=== PATIENT | male | born 1980 | race Caucasian/White ===

== ENCOUNTER 2017-05-23 17:51 | Emergency (ER) | payer MEDICAID, OTHER ==
[~2017-05-23] VITALS: Ht 167.6 cm; Wt 94.0 kg
[2017-05-23 17:58] VITALS: Ht 167.6 cm; Wt 94.0 kg
--- NOTE | 2017-05-23 20:03 | RADRPT ---
PROCEDURE: CT Brain without. CLINICAL INDICATION: Headache. TECHNIQUE: A CT of the brain was performed on multidetector high-resolution CT scanner utilizing a xial sections from the skull base through the vertex without contrast. The scan was reviewed in sof t tissue brain and high frequency resolution bone algorithm windows. Images were reviewed on a high -resolution PACS workstation. One or more the following does reduction techniques were utilized: Aut omated exposure control, adjustment of the mA/ or kV according to patient's size, or use of iterativ e reconstruction technique. The exam CTDI = 44.9 mGy and the DLP = 720.23 mGy-cm. COMPARISON: None available. FINDINGS: The ventricles and sulci are age-appropriate. There is no intracranial hemorrhage, mass effect or mi dline shift. No abnormal intra-axial or extra-axial fluid collections are seen. The tellez/white nick er differentiation is preserved. No acute skull abnormality is noted. The visualized paranasal sinus es demonstrate mild to moderate mucosal thickening in bilateral sphenoid sinuses with small fluid le manjula/mucoid secretion, right greater than left. The mastoid air cells are essentially clear. Partially visualized prominent posterior nasopharyngeal soft tissues are noted which could represent lymphoid hypertrophy. IMPRESSION: 1. No acute intracranial hemorrhage, transcortical infarction or mass effect. 2. Mild to moderate mucosal thickening in bilateral sphenoid sinuses with small fluid level/mucoid secretion, right greater than left, correlate for acute sinusitis. 3. Partially visualized prominent posterior nasopharyngeal soft tissues which could represent lymph oid hypertrophy. Correlate with direct visualization for further evaluation. RPTAT: HH .Ángel Melendez MD, MD Date Time Electronically viewed and signed by .Ángel Melendez MD, MD on 05/23/2017 20:03 .N/
[2017-05-23] MEDS ORDERED: ACET500C5 PO (20:27)
--- NOTE | 2017-05-23 20:36 | ERD ---
ER Documentation Chief Complaint Date/Time DATE: 05/23/17 TIME: 20:31 Chief Complaint pt bib self ,sent from PMD with c/o JOHNSON on and off for 2 months , HPI Patient is a 36-year-old male who presents to the emergency department for concerns of a headache 2 months. [facility] [place]. Patient states he has had a headache intermittently for the last 2 months. Headache comes and goes. Patient states he has a headache approximately twice per week. Currently patient does not have a headache. Patient describes the pain to be throughout his entire head. Patient does report nausea however he denies any vomiting. Patient denies any blurry vision, photophobia, phonophobia, LOC. Patient denies any fevers, chills, neck stiffness, neck pain or back pain. Patient denies any chest pain, shortness of breath, right upper extremity pain, diaphoresis or LOC. Of note, patient states he was told he had an elevated blood pressure. Patient has not been started on any blood pressure medication by his primary care physician. ROS All systems reviewed and are negative except as per history of present illness. Medications Home Meds Active Scripts Acetaminophen* (Tylophen*) 500 Mg Capsule, 1 CAP PO Q6H Y for PAIN AND OR ELEVATED TEMP, #20 CAP Prov:JESSICA CABELLO PA-C 05/23/17 Allergies Allergies: Coded Allergies: No Known Allergy (Unverified , 05/23/17) PMhx/Soc Medical and Surgical Hx: pt denies Surgical Hx History of Surgery: No Anesthesia Reaction: No Hx Neurological Disorder: No Hx Respiratory Disorders: No Hx Cardiac Disorders: Yes (HTN) Hx Psychiatric Problems: No Hx Miscellaneous Medical Probl: No Hx Alcohol Use: No Hx Substance Use: No Hx Tobacco Use: No Smoking Status: Never smoker Physical Exam Vitals Vital Signs Date Time Temp Pulse Resp B/P Pulse Ox O2 Delivery O2 Flow Rate FiO2 05/23/17 20:46 97 16 165/97 98 Room Air 05/23/17 17:58 98.3 101 16 161/73 99 Physical Exam GENERAL: Well-developed, well-nourished male. Appears in no acute distress. Speaking in full sentences HEAD: Normocephalic, atraumatic. EYES: Pupils are equally reactive bilaterally. EOMs grossly intact. No conjunctival erythema. ENT: Moist mucous membranes. No uvula deviation. No kissing tonsils. NECK: Supple. No meningismus. Normal range of motion of the neck. LUNG: Clear to auscultation bilaterally. No rhonchi, wheezing, rales or coarse breath sounds. HEART: Regular rate and rhythm. No murmurs, rubs or gallops. EXTREMITIES: Equal pulses bilaterally. No peripheral clubbing, cyanosis or edema. No unilateral leg swelling. NEUROLOGIC: Alert and oriented x3, cooperative. Mood and affect appropriate to situation. Cranial nerves II through XII are grossly intact. Normal speech. Motor exam: 5/5 strength in upper and lower extremities. Sensory exam: Sensation intact to light touch on all four extremities. Cerebellar function exam: No dysmetria on [id number] test. Steady gait. No pronator drift. SKIN: Normal color. Warm and dry. No rashes or lesions. Procedures/MDM ED COURSE: The patient was stable throughout ED course. I kept the patient and/or family informed of laboratory and diagnostic imaging results throughout the ED course. DIAGNOSTIC IMAGING: Read by radiologist. DIAGNOSTIC IMAGING REPORT Patient: ELMER VALADEZ : 1980 Age: 36 Sex: M MR #: [id number] DOS: 05/23/171912 Ordering MD: JESSICA CABELLO PA-C Location: [facility] Room/Bed: PROCEDURE: CT Brain without. CLINICAL INDICATION: Headache. TECHNIQUE: A CT of the brain was performed on multidetector high-resolution CT scanner utilizing axial sections from the skull base through the vertex without contrast. The scan was reviewed in soft tissue brain and high frequency resolution bone algorithm windows. Images were reviewed on a high- resolution PACS workstation. One or more the following does reduction techniques were utilized: Automated exposure control, adjustment of the mA/ or kV according to patient's size, or use of iterative reconstruction technique. The exam CTDI = 44.9 mGy and the DLP = 720.23 mGy-cm. COMPARISON: None available. FINDINGS: The ventricles and sulci are age-appropriate. There is no intracranial hemorrhage, mass effect or midline shift. No abnormal intra-axial or extra- axial fluid collections are seen. The tellez/white matter differentiation is preserved. No acute skull abnormality is noted. The visualized paranasal sinuses demonstrate mild to moderate mucosal thickening in bilateral sphenoid sinuses with small fluid level/mucoid secretion, right greater than left. The mastoid air cells are essentially clear. Partially visualized prominent posterior nasopharyngeal soft tissues are noted which could represent lymphoid hypertrophy. IMPRESSION: 1. No acute intracranial hemorrhage, transcortical infarction or mass effect. 2. Mild to moderate mucosal thickening in bilateral sphenoid sinuses with small fluid level/mucoid secretion, right greater than left, correlate for acute sinusitis. 3. Partially visualized prominent posterior nasopharyngeal soft tissues which could represent lymphoid hypertrophy. Correlate with direct visualization for further evaluation. RPTAT: HH .Ángel Melendez MD, Date Time Electronically viewed and signed by .Ángel Melendez MD, MD on 05/23/2017 20: 03 .N/ CC: JESSICA CABELLO PA-C MEDICAL DECISION MAKING: This is a 36-year-old male presents the emergency department for concerns of a headache 2 months. Patient states he has a headache approximately twice per week. She denies any headache at this time. Vital signs were reviewed. Patient was afebrile. Patient is not hypoxic. Patient denied any fevers, neck stiffness, jaw claudication, visual changes or LOC. Full neurological exam was normal. CT brain was obtained. CT brain showed 1. No acute intracranial hemorrhage, transcortical infarction or mass effect. 2. Mild to moderate mucosal thickening in bilateral sphenoid sinuses with small fluid level/mucoid secretion, right greater than left, correlate for acute sinusitis. 3. Partially visualized prominent posterior nasopharyngeal soft tissues which could represent lymphoid hypertrophy. Correlate with direct visualization for further evaluation. Given these findings, the patient's presentation is most consistent with headache of unknown etiology. Low suspicion for intracranial hemorrhage, midline shift, mass-effect, meningitis, encephalitis, intracranial mass, sinusitis, migraine headache or cluster headache. His blood pressure was noted to be elevated 161/73. Advised the patient that he should follow-up with his primary care physician to be started on blood pressure medication. Low suspicion for hypertensive emergency or hypertensive urgency at this time. PRESCRIPTIONS: Tylenol DISCHARGE: At this time, patient is stable for discharge and outpatient management. Patient was given a copy of all imaging studies obtained today. I have encouraged the patient to hydrate well. I have instructed the patient to follow- up with his/her primary care physician in 1-2 days. If symptoms persist, patient may need to see a specialist for further examinations and testing. I have instructed the patient to promptly return to the ER at any time for any new or worsening symptoms including increased increased pain, fever, nausea, vomiting, numbness, neck stiffness, visual changes, weakness or LOC. The patient and/or family expressed understanding of and agreement with this plan. All questions were answered. Home care instructions were provided. Patient's blood pressure was elevated (>120/80) but appears stable without evidence of hypertensive emergency, hypertensive urgency or end-organ failure. I had discussion with the patient about the risks of hypertension. I have advised the patient to follow up with his/her primary care physician for outpatient monitoring and treatment for hypertension in 2-3 days. I have instructed the patient to return to the ER for any new or worsening symptoms including chest pain, shortness of breath, headache, blurred vision, confusion, nausea, vomiting or LOC. Disclaimer: Inadvertent spelling and grammatical errors are likely due to EHR/ dictation software use and do not reflect on the overall quality of patient care. Also, please note that the electronic time recorded on this note does not necessarily reflect the actual time of the patient encounter. Departure Diagnosis: Primary Impression: Headache Headache type: unspecified Headache chronicity pattern: unspecified pattern Intractability: not intractable Qualified Code: R51 - Nonintractable headache, unspecified chronicity pattern, unspecified headache type Condition: Stable Patient Instructions: Self-Care for Headaches Referrals: COMM[facility] CLIN[facility] YOU HAVE RECEIVED A MEDICAL SCREENING EXAM AND THE RESULTS INDICATE THAT YOU DO NOT HAVE A CONDITION THAT REQUIRES URGENT TREATMENT IN THE EMERGENCY DEPARTMENT. FURTHER EVALUATION AND TREATMENT OF YOUR CONDITION CAN WAIT UNTIL YOU ARE SEEN IN YOUR DOCTORS OFFICE WITHIN THE NEXT 1-2 DAYS. IT IS YOUR RESPONSIBILITY TO MAKE AN APPOINTMENT FOR FOLOW-UP CARE. IF YOU HAVE A PRIMARY DOCTOR --you should call your primary doctor and schedule an appointment IF YOU DO NOT HAVE A PRIMARY DOCTOR YOU CAN CALL OUR PHYSICIAN REFERRAL HOTLINE AT IF YOU CAN NOT AFFORD TO SEE A PHYSICIAN YOU CAN CHOSE FROM THE FOLLOWING [facility] CLINICS [facility] [address] [facility] [address] [facility] [address] [facility] [address] [facility] [address] [facility]. [facility]. [address] [facility]. [facility] YOU HAVE RECEIVED A MEDICAL SCREENING EXAM AND THE RESULTS INDICATE THAT YOU DO NOT HAVE A CONDITION THAT REQUIRES URGENT TREATMENT IN THE EMERGENCY DEPARTMENT. FURTHER EVALUATION AND TREATMENT OF YOUR CONDITION CAN WAIT UNTIL YOU ARE SEEN IN YOUR DOCTORS OFFICE WITHIN THE NEXT 1-2 DAYS. IT IS YOUR RESPONSIBILITY TO MAKE AN APPOINTMENT FOR FOLOW-UP CARE. IF YOU HAVE A PRIMARY DOCTOR --you should call your primary doctor and schedule and appointment IF YOU DO NOT HAVE A PRIMARY DOCTOR YOU CAN CALL OUR PHYSICIAN REFERRAL HOTLINE AT . IF YOU CAN NOT AFFORD TO SEE A PHYSICIAN YOU CAN CHOSE FROM THE FOLLOWING [facility]: [facility] [address] [place] [address] [facility] [address] [place] [address] [facility] [address] [place] [address] Additional Instructions: Follow-up with your primary care physician for elevated blood pressures. Call your primary care doctor TOMORROW for an appointment during the next 1-2 days.See the doctor sooner or return here if your condition worsens before your appointment time. JESSICA CABELLO PA-C May 23, 2017 20:36
[2017-05-23 20:46] VITALS: BP 165/97; PULSE 97; RESP 16
== END 2017-05-23 20:48 | disposition home or self-care (01) ==
LOC: FTE 17:51
DX: R51 Headache (principal); I10 Essential (primary) hypertension
CPT/HCPCS: 70450; Z7502

== ENCOUNTER 2017-08-03 10:07 | Emergency (ER) | payer MEDICAID ==
[~2017-08-03] VITALS: Ht 167.6 cm; Wt 92.5 kg
[~2017-08-03 10:07] MED LIST: ACET500C5 PO
[2017-08-03 10:10] VITALS: Ht 167.6 cm; Wt 92.5 kg
[2017-08-03] MEDS ORDERED: HYDROmorphONE 1 MG/ML SYG IV STA (10:33)
[2017-08-03] MEDS ORDERED: SOD CHLORIDE 0.9% 1,000 ML IV STA (10:33)
[2017-08-03] MEDS ORDERED: ONDANSETRON 4 MG INJ IV STA (10:33)
[2017-08-03 10:50] LABS: BASOPHILS % 0.3 % (0.0-2.0); EOSINOPHILS # 0.1 10^3/ul (0.0-0.5); EOSINOPHILS % 1.2 % (0.0-7.0); HEMATOCRIT 49.3 % (42.0-52.0); HEMOGLOBIN 16.1 g/dl (14.0-18.0); LYMPHOCYTES # 3.1 10^3/ul (0.8-2.9); LYMPHOCYTES % 46.4 % (15.0-51.0); MEAN CORPUSCULAR HEMOGLOBIN 26.3 pg (29.0-33.0); MEAN CORPUSCULAR HGB CONC 32.7 g/dl (32.0-37.0); MEAN CORPUSCULAR VOLUME 80.4 fl (82.0-101.0); MEAN PLATELET VOLUME 9.4 fl (7.4-10.4); MONOCYTE # 0.5 10^3/ul (0.3-0.9); MONOCYTES % 7.2 % (0.0-11.0); NEUTROPHILS % 44.6 % (39.0-77.0); PLATELET COUNT 305 10^3/UL (140-415); RED BLOOD COUNT 6.13 10^6/ul (4.70-6.10); WHITE BLOOD COUNT 6.7 10^3/ul (4.8-10.8)
[2017-08-03 11:11] LABS: ADD UMIC YES; UR ASCORBIC ACID NEGATIVE (NEGATIVE); UR BILIRUBIN (Dip) NEGATIVE (NEGATIVE); UR BLOOD (Dip) NEGATIVE (NEGATIVE); UR CLARITY CLEAR (CLEAR); UR COLOR YELLOW (YELLOW); UR GLUCOSE (Dip) NEGATIVE (NEGATIVE); UR KETONES (Dip) NEGATIVE (NEGATIVE); UR LEUKOCYTE ESTERASE (Dip) NEGATIVE Leu/ul (NEGATIVE); UR MUCUS FEW /HPF (NONE SEEN); UR NITRITE (Dip) NEGATIVE (NEGATIVE); UR RBC 0 /HPF (0-5); UR SPECIFIC GRAVITY (Dip) 1.023 (1.003-1.030); UR TOTAL PROTEIN (Dip) 1+ mg/dl (NEGATIVE); UR UROBILINOGEN (Dip) NEGATIVE (NEGATIVE)
[2017-08-03 11:11] LABS: ALBUMIN 5.1 g/dl (3.3-4.9); ALBUMIN/GLOBULIN RATIO 1.34; BILIRUBIN,INDIRECT 0.4 mg/dl (0-1.1); BILIRUBIN,TOTAL 0.4 mg/dl (0.2-1.3); CALCIUM 9.5 mg/dl (8.4-10.2); CREATININE 0.98 mg/dl (0.61-1.24); POTASSIUM 3.7 mmol/L (3.5-5.1); TOTAL PROTEIN 8.9 g/dl (6.1-8.1)
[2017-08-03] MEDS ORDERED: CHLO50TA15 PO (11:46)
--- NOTE | 2017-08-03 12:08 | RADRPT ---
PROCEDURE: CT ABDOMEN AND PELVIS WITHOUT CONTRAST. CLINICAL INDICATION: Abdominal pain TECHNIQUE: CT scan of the abdomen and pelvis without contrast was performed on a multidetector hig h-resolution CT scanner. The patient was scanned without intravenous contrast. Coronal and sagittal reformatted images were obtained from the axial source images. Images were reviewed on a high-resol [employer] PACS workstation. The total exam CTDI equals 20.7 mGy and the total exam DLP equals 1253.3 mGy -cm. One or more of the following dose reduction techniques were used: Automated exposure control. Adjustment of the mA and/or kV according to patient size. Use of iterative reconstruction technique. COMPARISON: None FINDINGS: CT abdomen: The lung bases are clear. The heart size is within normal limits. There is no significant pericardia l effusion. Hepatic morphology is within limits. There is diffuse fatty infiltration of the liver. Gallbladder i s is mildly prominent. No evidence of intrahepatic or traumatic dilatation. The spleen and pancreas are within normal limits. Both adrenal glands are within normal limits. Both kidneys are in normal anatomic position. No evidence of obstruction or hydronephrosis. No gross renal/ureteric calculi. The visualized GI tract demonstrate normal caliber loops of small and large bowel. No evidence of eris wel obstruction. The appendix is within normal limits. The unenhanced aorta is unremarkable. Several shoddy retroperitoneal lymph nodes are identified. CT pelvis: Bladder is partially collapsed. Prostate gland is normal size. The rectosigmoid colon is within limi ts. No same free fluid. Same pelvic lymphadenopathy. The visualized osseous structures appear to be within normal limits. IMPRESSION: 1. No evidence of acute intra-abdominal/pelvic inflammatory process. No evidence of bowel obstructio n. The appendix is within normal limits. 2. No evidence of free fluid or free air. No gross focal fluid collections. 3. Fatty liver. 4. Gallbladder is mildly prominent however no gross evidence of radiopaque stones. If clinical suspi cion remains, recommend follow-up ultrasound. RPTAT: AAPP Physician Cortez Date Time Electronically viewed and signed by Physician Cortez on 08/03/2017 12:08 JL/
[2017-08-03 12:49] VITALS: BP 124/71; PULSE 87; RESP 18
[2017-08-03] MEDS ORDERED: ONDA4TAB14 PO (12:53)
[2017-08-03] MEDS ORDERED: HYDR-902 PO (12:53)
--- NOTE | 2017-08-03 13:44 | ERD ---
ER Documentation Chief Complaint Chief Complaint abdominal pain and testicular pain x 2 weeks, worse x 4 days HPI Patient is a 36-year-old male with hypertension who presents with abdominal pain. He has left-sided abdominal pain which radiates to his right side. He has bilateral testicular pain as well. He said that it started 1 month ago but was worse today. The pain comes and goes. He had subjective fevers. He has had no treatment for pain as of yet. He does not currently have a primary doctor. Upon review of old medical records the patient one previous visit to the ER in May 2017. ROS All systems reviewed and are negative except as per history of present illness. Medications Home Meds Active Scripts Ondansetron (Ondansetron Odt) 4 Mg Tab.rapdis, 4 MG PO Q6H Y for NAUSEA AND/OR VOMITING, #10 TAB Prov:LIZZ YADAV MD 08/03/17 Hydrocodone/Acetaminophen (Pelsor 10-325 Tablet) 1 Each Tablet, 1 TAB PO Q6H Y for PAIN, #7 TAB Prov:LIZZ YADAV MD 08/03/17 Reported Medications Chlorthalidone* (Chlorthalidone*) 50 Mg Tablet, 50 MG PO DAILY, TAB 08/03/17 Discontinued Scripts Acetaminophen* (Tylophen*) 500 Mg Capsule, 1 CAP PO Q6H Y for PAIN AND OR ELEVATED TEMP, #20 CAP Prov:JESSICA CABELLO PA-C 05/23/17 Allergies Allergies: Coded Allergies: No Known Allergy (Unverified , 05/23/17) PMhx/Soc History of Surgery: No Anesthesia Reaction: No Hx Neurological Disorder: No Hx Respiratory Disorders: No Hx Cardiac Disorders: Yes (HTN) Hx Psychiatric Problems: No Hx Miscellaneous Medical Probl: No Hx Alcohol Use: No Hx Substance Use: No Hx Tobacco Use: No Smoking Status: Current every day smoker FmHx Family History: diabetes Physical Exam Vitals Vital Signs Date Time Temp Pulse Resp B/P Pulse Ox O2 Delivery O2 Flow Rate FiO2 08/03/17 12:49 87 18 124/71 98 Room Air 08/03/17 10:52 77 18 118/68 99 Room Air 08/03/17 10:10 98.7 134 20 183/116 97 Physical Exam Const: Moderate distress secondary to pain Head: Atraumatic Eyes: Normal Conjunctiva ENT: Normal External Ears, Nose and Mouth. Neck: Full range of motion..~ No meningismus. Resp: Clear to auscultation bilaterally Cardio: Tachycardic rate without murmur Abd: Soft, left lower quadrant abdominal pain without rebound or guarding Skin: No petechiae or rashes Back: No midline or flank tenderness Ext: No cyanosis, or edema Neur: Awake and alert : No testicular pain or swelling Result Diagram: 08/03/17 1025 08/03/17 1025 Results 24 hrs Laboratory Tests Test 08/03/17 10:25 08/03/17 10:40 White Blood Count 6.710^3/ul Red Blood Count 6.1310^6/ul Hemoglobin 16.1g/dl Hematocrit 49.3% Mean Corpuscular Volume 80.4fl Mean Corpuscular Hemoglobin 26.3pg Mean Corpuscular Hemoglobin Concent 32.7g/dl Red Cell Distribution Width 13.0% Platelet Count 96884^3/UL Mean Platelet Volume 9.4fl Neutrophils % 44.6% Lymphocytes % 46.4% Monocytes % 7.2% Eosinophils % 1.2% Basophils % 0.3% Nucleated Red Blood Cells % 0.0/100WBC Neutrophils # 3.010^3/ul Lymphocytes # 3.110^3/ul Monocytes # 0.510^3/ul Eosinophils # 0.110^3/ul Basophils # 0.010^3/ul Nucleated Red Blood Cells # 0.010^3/ul Sodium Level 146mmol/L Potassium Level 3.7mmol/L Chloride Level 103mmol/L Carbon Dioxide Level 27mmol/L Anion Gap 20 Blood Urea Nitrogen 13mg/dl Creatinine 0.98mg/dl Glucose Level 105mg/dl Calcium Level 9.5mg/dl Total Bilirubin 0.4mg/dl Direct Bilirubin 0.00mg/dl Indirect Bilirubin 0.4mg/dl Aspartate Amino Transf (AST/SGOT) 30IU/L Alanine Aminotransferase (ALT/SGPT) 55IU/L Alkaline Phosphatase 72IU/L Total Protein 8.9g/dl Albumin 5.1g/dl Globulin 3.80g/dl Albumin/Globulin Ratio 1.34 Lipase 119U/L Urine Color YELLOW Urine Clarity CLEAR Urine pH 5.0 Urine Specific [place] 1.023 Urine Ketones NEGATIVEmg/dL Urine Nitrite NEGATIVEmg/dL Urine Bilirubin NEGATIVEmg/dL Urine Urobilinogen NEGATIVEmg/dL Urine Leukocyte Esterase NEGATIVELeu/ul Urine Microscopic RBC 0/HPF Urine Microscopic WBC 1/HPF Urine Mucus FEW/HPF Urine Hemoglobin NEGATIVEmg/dL Urine Glucose NEGATIVEmg/dL Urine Total Protein 1+mg/dl Current Medications Medications (Trade) Dose Ordered Sig/Erica Route PRN Reason Start Time Stop Time Status Last Admin Dose Admin Sodium Chloride (NS) 1,000 ml @ 1,000 mls/hr Q1H STAT IV 08/03/17 10:33 08/03/17 11:32 DC 08/03/17 10:52 Hydromorphone HCl (Dilaudid) 1 mg ONCE STAT IV 08/03/17 10:33 08/03/17 10:35 DC 08/03/17 10:52 Ondansetron HCl (Zofran Inj) 4 mg ONCE STAT IV 08/03/17 10:33 08/03/17 10:35 DC 08/03/17 10:52 Procedures/MDM CT abdomen pelvis shows no surgical process per radiology. Patient is a 36-year-old male with hypertension who presents with abdominal pain. Workup was basically normal including laboratory studies and CT scan of the abdomen and pelvis. The patient feels better after Dilaudid, Zofran, and fluids. At this point I doubt appendicitis, cholecystitis, pink otitis, or bowel obstruction. I believe outpatient management is appropriate but the patient will need close follow-up with the local clinics tomorrow morning for reevaluation. The patient can return sooner for any worsening symptoms. The patient understands the plan is okay for discharge. The patient was given labs and CT scan results prior to discharge. Vital signs normalized while in the emergency department. Departure Diagnosis: Primary Impression: Abdominal pain Abdominal location: generalized Qualified Code: R10.84 - Generalized abdominal pain Condition: Fair Patient Instructions: Abdominal Pain Referrals: [facility] Usted se jacobson hecho un examen mdico de control que le indica que no est en garrett condicin que requiera tratamiento urgente en el Departamento de Emergencia. Un estudio ms profundo y el tratamiento de gusman condicin pueden esperar sin ningn riesgo hasta que usted sea atendida/o en el consultorio de gusman mdico o garrett cl corina. Es responsabilidad suya arreglar garrett fabiola para el seguimiento del katie. MANEJO DE CONDICIONES NO URGENTES EN EL FUTURO 1) Si usted tiene un mdico de atencin primaria: Usted debera llamar a gusman mdico de atencin primaria antes de venir al departamento de emergencia. Despus de las horas de consultorio, gusman doctor o gusman asociado/a est disponible por telfono. El mdico o enfermero de sujit en el servicio telefnico puede asesorarle por enoch medio para atender el problema, o katie contrario se puede programar garrett fabiola. 2) Si usted no tiene un mdico de atencin primaria: Llame al mdico o clnica de referencia que aparece abajo romeo las horas de consultorio para hacer garrett fabiola para que le vean. CLINICAS: [facility] [phone] [address] [facility] [phone] [address] [facility]. [facility] [phone] [address] [facility]. [place] [address] [phone] [facility]. [facility] [phone] [address] [facility]. [phone] [address] Additional Instructions: Llame al doctor MAANA y lia garrett FABIOLA PARA DENTRO DE 1-2 PATTERSON.Dgale a la secretaria que nosotros le instruimos hacer esta fabiola.Avise o llame si gusman condicin se empeora antes de la fabiola. Regresa aqui si peor o no mejor. LIZZ YADAV MD Aug 03, 2017 13:44
== END 2017-08-03 13:13 | disposition home or self-care (01) ==
LOC: E/R 10:07
DX: R10.84 Generalized abdominal pain (principal); I10 Essential (primary) hypertension; F17.210 Nicotine dependence, cigarettes, uncomplicated
CPT/HCPCS: 36415; 74176; 80053; 81001; 83690; 85025; 96374; 96375; J1170; J2405; J7030; Z7502

== ENCOUNTER 2018-07-21 14:27 | Emergency (ER) | END 2018-07-21 18:31 | disposition home or self-care (01) ==